=== PATIENT | female | born 1965 | race Caucasian/White ===

== ENCOUNTER 2017-09-03 10:26 | Day surgery (SDC) | payer OTHER ==
[2017-09-03] MEDS ORDERED: LR 1,000 ML IV ONE (10:45)
[2017-09-03] MEDS ORDERED: LIDOCAINE 1% 2 ML INJ ID PRN (10:45)
[2017-09-03 10:56] VITALS: PULSE 48
--- NOTE | 2017-09-03 11:24 | PDANEPAE ---
ANE History of Present Illness L foot neuroma excision ANE Past Medical History - Cardiovascular History Hx Hypertension: No Hx Arrhythmias: No Hx Chest Pain: No Hx Coronary Artery / Peripheral Vascular Disease: No Hx CHF / Valvular Disease: No Hx Palpitations: No - Pulmonary History Hx COPD: No Hx Asthma/Reactive Airway Disease: No Hx Recent Upper Respiratory Infection: No Hx Oxygen in Use at Home: No Hx Sleep Apnea: No Sleep Apnea Screening Result - Last Documented: Negative Pulmonary History Comment: CURRENT URI - STARTED ON ANTIBIOTIC Z-PACK 10-08-15 - Neurologic History Hx Cerebrovascular Accident: No Hx Seizures: No Hx Dementia: No - Endocrine History Hx Diabetes: No - Renal History Hx Renal Disorders: No - Liver History Hx Hepatic Disorders: No - Neurological & Psychiatric Hx Hx Neurological and Psychiatric Disorders: No - Cancer History Hx Cancer: Yes Cancer History Comment: SKIN CA NOSE - Congenital Disorder History Hx Congenital Disorders: No - GI History Hx Gastrointestinal Disorders: No - Other Health History Other Health History: wears glasses - Chronic Pain History Chronic Pain: No - Surgical History Prior Surgeries: 10/11/15 davinci robot assist hysterectomy with Jose [place]. NEUROMA FOOT R - PINNED ANE Review of Systems Review of systems is: negative Review of Systems: - Exercise capacity Exercise capacity: >=4 METS METS (RN): 6 METS ANE Patient History - Allergies Allergies/Adverse Reactions: No Known Allergies Allergy (Verified 08/26/17 11:09) - Home Medications Home medications: home medication list seen and reviewed Home Medications: NK [No Known Home Meds] 02/13/15 [Last Taken Unknown] - NPO status NPO Since - Liquids (Date): 09/03/17 NPO Since - Liquids (Time): 07:00 NPO Since - Solids (Date): 09/03/17 NPO Since - Solids (Time): 02:00 - Anes Hx Anes Hx: no prior problems - Smoking Hx Smoking Status: Never smoked - Family Anes Hx Family Anes Hx: none Family Hx Anesthesia Complications: none ANE Labs/Vital Signs - Vital Signs Blood Pressure: 114/71 Heart Rate: 48 Respiratory Rate: 14 O2 Sat (%): 100 Height: 165.1 cm Weight: 53.977 kg ANE Physical Exam - Airway Neck exam: FROM Mallampati Score: Class 1 Mouth exam: normal dental/mouth exam - Pulmonary Pulmonary: no respiratory distress - Cardiovascular Cardiovascular: regular rate and rhythym - ASA Status ASA Status: I ANE Anesthesia Plan Total IV Anesthesia: Yes
[2017-09-03] MEDS ORDERED: ceFAZolin 2 GM/SWFI 2 GM/20 ML SYR IVP ONE (11:33)
--- NOTE | 2017-09-03 11:33 | PDHPUP ---
History & Physical Update H&P update statement: This history and physical update is based on an assessment of the patient which was completed after admission or registration (within 24 hours), but prior to the surgery/procedure. NO CHANGE IN HEALTH
[2017-09-03] MEDS ORDERED: MIDAZOLAM 2 MG/2 ML VIAL IVP ONE (11:51)
[2017-09-03] MEDS ORDERED: BUPIVACAINE 0.5% 30 ML SDV ONE (12:06)
[2017-09-03] MEDS ORDERED: LIDOCAINE 1% 300 MG/30 ML SDV ONE (12:06)
[2017-09-03] MEDS ORDERED: ROPIVACAINE HCL 20 MG/10 ML INJ EP ONE (12:07)
[2017-09-03] MEDS ORDERED: DEXAMETHASONE 4 MG/ML VIAL ONE (12:08)
[2017-09-03] MEDS ORDERED: BACITRACIN 50,000 UNITS/10 ML SYR IRR ONE (12:09)
[2017-09-03] MEDS ORDERED: CYANO/VITAMIN B12 1000 MCG/ML VIAL ONE (12:10)
[2017-09-03] MEDS ORDERED: LIDOCAINE 2% 5 ML SDV ONE (12:10)
[2017-09-03] MEDS ORDERED: LIDOCAINE 2% 100 MG/5 ML SYR ONE (12:16)
[2017-09-03] MEDS ORDERED: PROPOFOL/EMULSION 500 MG/50 ML BOTTLE IV ONE ×2 (12:16→13:14)
[2017-09-03] MEDS ORDERED: ROPIVACAINE HCL 150 MG/30 ML INJ ONE (12:25)
[2017-09-03] MEDS ORDERED: ONDANSETRON 4 MG/2 ML VIAL IVP PRN (13:58)
[2017-09-03] MEDS ORDERED: fentaNYL 100 MCG/2 ML INJ IVP PRN (13:58)
[2017-09-03] MEDS ORDERED: HYDROCODONE/APAP 5/325 TAB PO PRN (13:58)
[2017-09-03] MEDS ORDERED: HYDROmorphONE/DILAUDID 1 MG/ML INJ IVP PRN (13:58)
[2017-09-03] MEDS ORDERED: PROMETHAZINE HCL 25 MG/ML INJ IVP PRN (13:58)
[2017-09-03] MEDS ORDERED: OXYCODONE/APAP 5/325 TAB PO PRN (13:58)
[2017-09-03] MEDS ORDERED: MEPERIDINE 25 MG/ML SYR IVP PRN (13:58)
[2017-09-03] MEDS ORDERED: DEXAMETHASONE 4 MG/ML VIAL IVP PRN (13:58)
[2017-09-03] MEDS ORDERED: NALOXONE HCL 0.4 MG/ML INJ IVP PRN (13:58)
[2017-09-03] MEDS ORDERED: ACETAMINOPHEN 500 MG TAB PO PRN (13:58)
--- NOTE | 2017-09-03 13:58 | POSTANESTH ---
Post Anesthetic Evaluation Cardiovascular Status: Normal, Stable, Similar to Pre-Op Cond Respiratory Status: Normal, Stable, Similar to Pre-op Cond. Level of Consciousness/Mental Status: Can Participate in Eval, Mildly Sleepy, Arousable Pain Control: Adequate, Prn Tx Ordered Nausea/Vomiting Control: Adequate, Prn Tx Ordered Complications Possibly Related to Anesthesia: None Noted
[2017-09-03] MEDS ORDERED: PROPOFOL 200 MG/20 ML VIAL ONE (14:45)
--- NOTE | 2017-09-03 15:11 | POSTOPPROG ---
Post Op Note Date of Operation: 09/03/17 Surgeon: Sun Nicole Fountain Manager: cara nicole Anesthesiologist: dr. Burnette Anesthesia: IV Sedation, Other (Specify) (light general) Pre-op Diagnosis: Hallux rigidus, neuroma 3rd IMS Post-op Diagnosis: hallux rigidus, neuroma 3rd IMS Indication: pain. Procedure: fusion first MTPJ left foot. Excision of neuroma 3rd IMS left foot Findings: enlarged bulbous nerve. Advanced DJD first MTPJ, large loose body, jtmice Inf/Abcess present in the surg proc area at time of surgery?: No Depth: Deep Incisional (Fascial) EBL: Minimal Complications: none Drains: Other (silastic drain)
[2017-09-03 15:34] VITALS: TEMP 97.2
[2017-09-03 16:41] VITALS: BP 113/77; RESP 17; O2SAT 100
--- NOTE | 2017-09-04 04:14 | GOP ---
[f rep st] OPERATIVE REPORT DATE OF OPERATION: 09/03/2017 SURGEON: Sun Vitale DPM OWNER OPERATOR TANKER TRUCK DRIVER: Crista Vitale DPM ANESTHESIA: MAC/light general. ANESTHESIOLOGIST: Dr. Burnette PREOPERATIVE DIAGNOSIS: 1. 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 2. Hallux rigidus, left foot. POSTOPERATIVE DIAGNOSIS: 1. 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 2. Hallux rigidus, advanced, left foot. PROCEDURE PERFORMED: 1. Excision of neuroma 3rd intermetatarsal space, left foot. 2. Fusion of the 1st metatarsophalangeal joint with plate and screw fixation, left foot. FINDINGS: 1. In the 3rd intermetatarsal space, a rubbery large soft tissue mass consistent with that of a neuroma, left foot. 2. Advanced degeneration of the 1st metatarsophalangeal joint, 80% of the cartilage absent on the metatarsal head andbase of the phalanx. Large loose bone fragment base of proximal phalanx . Joint mice and loose bone fragments. SPECIMENS: Soft tissue sent for gross and microscopic examination, neuroma. ESTIMATED BLOOD LOSS: Less than 5 cc. INDICATIONS: Pain with neuroma, left foot, that she report shut her down, causes a lot of pain, limits her activities and has been present for years. Regarding pain in the big toe joint, at preoperative she related that it has been quite painful at night with the bedsheets touching and throbs. She feels she has compensated. At this time, she elects to proceed with surgery on the neuroma as well as on the big toe joint. She reports just hiking and walking hurts it, running not so much. However, pain present on a daily basis. We have had several discussions regarding the pros and cons of a decompression osteotomy versus a joint fusion. Optimal procedure will be determined intraoperatively when I can see the joint and the extent of the cartilage damage. She was in agreement to joint fusion if this is what is necessary to address her condition. DESCRIPTION OF PROCEDURE: Patient was brought into the operating room, placed on the operating table in the supine position. Intravenous sedation administered by the anesthesiologist, light general. A posterior tibial and peripheral nerve block was obtained utilizing a total of 20 cc of 1 to 1 to 1 mix of 1% lidocaine plain, 0.5% ropivacaine plain, and 0.5% Marcaine plain. The lower extremity was prepped and draped in the usual sterile manner. After the limb had been elevated, it was exsanguinated with an Esmarch bandage and the ankle tourniquet was inflated to 220 mmHg and the procedure was begun. Webril padding utilizing under the ankle cuff. EXCISION OF NEUROMA 3RD IMS LEFT: Attention was directed towards the dorsal aspect of the 3rd intermetatarsal space, where a linear incision was created. Incision was carefully deepened with care of neurovascular structures and clamp and cauterize bleeders. With plantar pressure, rubbery soft tissue mass was identified consistent with that of a neuroma. Distal branches to 3rd and 4th digits were identified and transected at their most distal appreciation. Ttight intermetatarsal ligament was released. Proximal stem of the neuroma nerve was then transected at the level of the intrinsic muscles proximal to the level of the metatarsal heads. The soft tissue mass was resected in toto and sending it to Pathology for gross and microscopic examination. The wound was copiously irrigated with bacitracin irrigation solution. Note: Prior to transection of the nerve, 1 cc of Decadron, 1 cc of B12 and 2 cc of 0.5% bupivacaine was injected. FUSION OF THE FIRST MTPJ: Attention directed to the dorsal medial aspect of the 1st metatarsophalangeal joint where a linear incision was created. Incision was carefully deepened with care of neurovascular structures and clamp and cauterize bleeders. Linear capsulotomy performed exposing the 1st metatarsophalangeal joint, which was noted to have extensive degeneration, loose bone fragments, joint mice and large dorsal osteophytes. 80% of the cartilage was absent on the 1st metatarsal head with bone exposed, and approximately the same amount was absent on the base of the proximal phalanx with little or no cartilage present; therefore, there was no hesitation to do the joint fusion. Utilizing rongeur, loose bone fragments were resected. Sagittal saw was utilized to remove osteophytes and bone spurs. The wound was then copiously irrigated with bacitracin irrigation solution. Then, utilizing the Arthrex reamer system, the head of the 1st metatarsal and base of the proximal phalanx were prepped for fusion, cartilage resected, and then utilizing microfracture as well as Arthrex drill bit, 2.0, joint was prepped. A Jackie bone graft was placed within the joint. Various Arthrex plates were applied and it was determined a small standard metatarsal fusion plate of 5 degrees dorsiflexion was optimal. Temporarily positioned with taks. Then utilizing K-wires to maintain alignment and positioning, and C arm pictures to confirm good alignment and apposition, a 3.5 headless screw measuring 34 mm in length was placed across the fusion site from distal medial to proximal laterally. Excellent compression obtained. Proximal pin tack was removed to be able to obtain good compression. Then, the plate was secured with screws: A distal 3 mm locking screw measuring 14 mm in length. Then, an attempt was made to apply the compression screw, nonlocking, however, it could not be placed since the compression screw was directly beneath this hole. Then a proximal locking screw was placed, 20 mm x 3 mm. Then a distal locking screw 12 mm in length, 3 mm. And then one more proximal locking screw 14 mm in length, also a 3 mm size screw. C-arm pictures were taken throughout to verify alignment and positioning which was noted to be excellent. The wound was copiously irrigated with bacitracin irrigation throughout the procedure. Tourniquet was released and a normal hyperemic response was noted to all digits. Capsular closure achieved with 3-0 and 2-0 Vicryl, subcutaneous closure with 2-0 Monocryl. Note , separate stab incision had been created for exiting of a silastic drain in the area of the neuroma, secured with Prolene. All subcutaneous closure with 4- 0 Monocryl and the skin was closed with 4-0 Prolene in a horizontal mattress and simple interrupted suture manner. Dressings include Xeroform, 4 x 4's, fluffs, Yair, reinforced with tape and an Nitin bandage. The patient tolerated the procedure and anesthesia well and left the operating room with vital signs stable and vascular status intact to all digits. There were no intraoperative complications. ADDITIONAL INJECTABLES: Included 10 cc of the 1 to 1 to 1 mixture of the Marcaine, ropivacaine, and 1% lidocaine. This was prior to onset of the procedure since there was some movement going on. POSTOPERATIVE RECOVERY: The patient was doing well. Her boyfriend of 8 years will be providing her transportation home. She is to follow up at our office in 2 days for wound check. Prognosis good. /[id number]/MODL MTDD
== END 2017-09-03 16:35 | disposition home or self-care (01) ==
LOC: FSGY 10:26
PROVIDERS: ATTEND Podiatrist
PROC: 0SGN04Z Fusion of Left Metatarsal-Phalangeal Joint with Internal Fixation Device, Open Approach (ICD-10-PCS; principal; 2017-09-03 12:00)
PROC: 01BG0ZZ Excision of Tibial Nerve, Open Approach (ICD-10-PCS; principal; 2017-09-03 12:00)
DX: M20.22 Hallux rigidus, left foot (principal); D36.13 Benign neoplasm of peripheral nerves and autonomic nervous system of lower limb, including hip; J06.9 Acute upper respiratory infection, unspecified; M19.072 Primary osteoarthritis, left ankle and foot; M21.6X9 Other acquired deformities of unspecified foot
CPT/HCPCS: C1713; C1762; J0690; J1100; J2001; J2250; J2704; J2795